=== PATIENT | female | born 1955 | race Caucasian/White ===

== ENCOUNTER 2023-02-04 06:17 | Day surgery (SDC) | payer OTHER, SELFPAY ==
[2023-02-04 07:50] VITALS: BMI 19.5
[2023-02-04 07:56] VITALS: BP 112/71
[2023-02-04 07:57] VITALS: BMI 19.5
[2023-02-04 10:25] VITALS: BP 131/65
[2023-02-04 10:30] VITALS: BP 112/71
[2023-02-04 10:45] VITALS: BP 142/92
[2023-02-04 11:01] VITALS: BP 157/87
[2023-02-04 11:25] VITALS: BP 131/65
== END 2023-02-04 11:10 | disposition home or self-care (01) ==
LOC: GI 06:17
PROVIDERS: ATTENDING PHYSICIAN Internal Medicine Gastroenterology
DX: D12.2 Benign neoplasm of ascending colon (principal); D12.3 Benign neoplasm of transverse colon; K63.5 Polyp of colon; K57.30 Diverticulosis of large intestine without perforation or abscess without bleeding; K64.0 First degree hemorrhoids; Z98.890 Other specified postprocedural states; Z86.010 Personal history of colon polyps
CPT/HCPCS: 45385; 88305

== ENCOUNTER → 2023-09-27 18:25 | Outpatient (REF) | payer OTHER, SELFPAY | LOC: WDC 18:25 | PROVIDERS: ATTENDING PHYSICIAN Family Medicine | DX: Z12.31 Encounter for screening mammogram for malignant neoplasm of breast (principal) | CPT/HCPCS: 77063; 77067 ==

== ENCOUNTER 2024-05-09 06:30 | Day surgery (SDC) | payer OTHER, SELFPAY ==
[2024-05-09 08:28] VITALS: BMI 19.4
[2024-05-09 08:29] VITALS: BP 124/79; BMI 19.4
[2024-05-09 09:47] VITALS: BP 116/70
[2024-05-09 10:00] VITALS: BP 135/82
== END 2024-05-09 10:22 | disposition home or self-care (01) ==
LOC: SDS 06:30
PROVIDERS: ATTENDING PHYSICIAN Internal Medicine Gastroenterology
PROC: 0DBK8ZX Excision of Ascending Colon, Via Natural or Artificial Opening Endoscopic, Diagnostic (ICD-10-PCS; 2024-05-09)
DX: Z12.11 Encounter for screening for malignant neoplasm of colon (principal); D12.2 Benign neoplasm of ascending colon; K64.0 First degree hemorrhoids; K57.30 Diverticulosis of large intestine without perforation or abscess without bleeding; Z86.0101 Personal history of adenomatous and serrated colon polyps
CPT/HCPCS: 45385; 88305

== ENCOUNTER → 2024-09-29 10:04 | Outpatient (REF) | payer OTHER, SELFPAY | LOC: HWWDC 10:04 | PROVIDERS: ATTENDING PHYSICIAN Family Medicine | DX: Z12.31 Encounter for screening mammogram for malignant neoplasm of breast (principal); Z78.0 Asymptomatic menopausal state | CPT/HCPCS: 77063; 77067; 77080 ==